=== PATIENT | female | born 1960 | race African-American/Black ===

== ENCOUNTER 2017-10-18 17:27 | Emergency (ER) | payer MEDICARE, MEDICAID ==
[~2017-10-18] VITALS: Ht 165.1 cm; Wt 71.0 kg
[2017-10-19] MEDS ORDERED: TETANUS, DIPHTHERIA, PERTUSSIS VAC/PF 0.5ML (>7YR OLD) IM ONE
[2017-10-19 00:35] VITALS: BP 173/66
== END 2017-10-19 00:53 | disposition home or self-care (01) ==
LOC: ER 17:27
DX: S80.812A Abrasion, left lower leg, initial encounter (principal); L08.9 Local infection of the skin and subcutaneous tissue, unspecified; W19.XXXA Unspecified fall, initial encounter; Z91.81 History of falling; Y93.89 Activity, other specified; Y92.89 Other specified places as the place of occurrence of the external cause; Y99.8 Other external cause status
CPT/HCPCS: 90471; 90715; 99283